=== PATIENT | male | born 1995 | race Caucasian/White ===

== ENCOUNTER 2024-06-19 18:54 | Emergency (ER) | payer SELFPAY ==
[~2024-06-19] VITALS: Ht 188 cm; Wt 65.8 kg
[2024-06-19 19:51] VITALS: PULSE 110; RESP 19; TEMP 100.8
[2024-06-19] MEDS: ACETAMINOPHEN 325 MG TAB PO ONE (20:08)
[2024-06-19 20:41] LABS: INFLUENZAE A&B ANTIGEN (RAPID) NEGATIVE (NEGATIVE); RESPIRATORY SYNC. VIRUS NEGATIVE (NEGATIVE)
[2024-06-19] MEDS ORDERED: AZITHROMYCIN250 MG PO (23:22)
[2024-06-19 23:29] VITALS: BP 120/78; PULSE 97; RESP 17; TEMP 99; O2SAT 99
== END 2024-06-19 23:27 | disposition home or self-care (01) ==
LOC: ER 19:01
DX: R50.9 Fever, unspecified (principal); J20.9 Acute bronchitis, unspecified; R05.9 Cough, unspecified; Z11.52 Encounter for screening for COVID-19
CPT/HCPCS: 71045; 87400; 87420; 99283; U0002